=== PATIENT | female | born 1985 | race African-American/Black ===

== ENCOUNTER 2016-08-18 10:25 | Inpatient (IN) | payer OTHER ==
--- NOTE | ~2016-08-18 | EKG ---
PATIENT: KURTIS SHANKAR UNIT #: [id number] Ventricular Rate: 97 BPM Atrial Rate: 97 BPM P-R Interval: 146 ms QRS Duration: 78 ms Q-T Interval: 332 ms QTC Calculation(Bezet): 421 ms P Mcdowell: 50 degrees Calculated R Mcdowell: 34 degrees Calculated T Mcdowell: 24 degrees Diagnosis Line: Normal sinus rhythm Diagnosis Line: Normal ECG Diagnosis Line: When compared with ECG of 18-AUG-2016 09:12, Diagnosis Line: (unconfirmed) Diagnosis Line: Sinus rhythm has replaced Atrial fibrillation Diagnosis Line: Vent. rate has decreased BY 48 BPM Diagnosis Line: Confirmed by TOD TONG MD ([id number]) on 08/20/2016 Diagnosis Line: 9:48:01 AM INTERPRETING MD: RAN SUAREZ
--- NOTE | ~2016-08-18 | DS ---
Unit #: [id number] #: [id number] Patient: KURTIS SHANKAR [id number] [address] [place], [place] [address] [id number] I MR#: [id number] NAME: KURTIS SHANKAR ROOM: 63083 Age: 31 Sex: F Admission Date: 08/18/2016 : 1985 Discharge Date: 08/18/2016 Attending Physician: Tere Richardson M.D. Primary Care Physician: No Primary Care Physician DISCHARGE SUMMARY DISCHARGE DIAGNOSES 1. Paroxysmal atrial fibrillation. 2. Gastroesophageal reflux disease. 3. Obesity with possible obstructive sleep apnea. DISCHARGE MEDICATIONS 1. Metoprolol 25 mg p.o. once daily. 2. Pantoprazole 40 mg p.o. twice daily. PERTINENT LABS Creatinine stable. TSH 0.68 (normal). Drug abuse, positive for marijuana. HOSPITAL COURSE A 31-year-old -Turkmen female who came to ER with abdominal cramp and pain, nausea, vomiting and diarrhea. The patient was also found to be in paroxysmal atrial fibrillation with a ventricular rate of 145 beats a minute. The patient received fluids and also received Cardizem IV. She spontaneously converted to normal sinus rhythm. Her orthostatics, however, have been negative and her abdominal cramps have much resolved. She still continues to have acid reflux type symptoms. Orthostatic blood pressure initially was around 138/86. She denied any history of hypertension. She denied any history of sudden cardiac in family. The first set of cardiac enzymes were negative. Her rhythm since converted to normal sinus rhythm, is stable. Most likely, the patient's etiology for paroxysmal atrial fibrillation was acute gastrointestinal illness and electrolyte imbalance, currently in normal sinus rhythm. The patient denied any such episodes in the past. With only one such episode, I would not offer her anticoagulation, also, with [id number] score zero. I discussed in length with the patient that she needs cardiology followup. She is agreeable to that and wants to go home, completely stable for discharge. As an outpatient, the patient would require a 2-D echocardiogram and obstructive sleep apnea study. Also, the patient would require event monitor if she has any symptoms of palpitations to see recurrence of atrial fibrillation to assess for the need of anticoagulation. The patient is stable to be discharged with outpatient followup with Cardiology in two to three weeks. Dictated by..Madelaine Richardson M.D. Unit #: [id number] #: [id number] Patient: KURTIS SHANKAR TIP/gladis TD: 08/19/2016 06:03 JOB #: [id number] DISCHARGE SUMMARY Page 1 of 1 X TERE RICHARDSON MD X DISCHARGE SUMMARY
--- NOTE | ~2016-08-18 | HP ---
Unit #: [id number] #: [id number] Patient: KURTIS SHANKAR [id number] [address] [address] [id number] I MR#: [id number] NAME: KURTIS SHANKAR ROOM: 91024 Age: 31 Sex: F Admission Date: 08/18/2016 : 1985 Attending Physician: Devan Richardson M.D. Primary Care Physician: No Primary Care Physician HISTORY AND PHYSICAL CHIEF COMPLAINT Dizziness, fatigue, palpitations. HISTORY OF PRESENT ILLNESS The patient is a 31-year-old female who does not have a primary care provider or a purler. She denies any significant past medical history. She endorses that she has 4 children. She occasionally smokes marijuana. The patient reports that on Thursday, after she ate some ribs, she began vomiting and having palpitations. She felt dizzy and short of breath at that time. Ever since Thursday, she again has reported that off and on she has occasionally felt palpitations, hot flashes, dizziness and fatigue. She also does endorse stomach and back pains. She denies any chest pain. She does endorse that she does have a burning sensation in her epigastric area. In the emergency department patient was treated with Zofran and Pepcid. She was given a liter of normal saline, and she was given 20 mg of IV Cardizem as a bolus. Her EKG showed atrial fibrillation with a rapid ventricular rate. Her rate at that time was 144. Chest x-ray shows thoracic scoliosis but no active disease. Patient has been admitted for further workup. PAST MEDICAL HISTORY Denies. PAST SURGICAL HISTORY None. ALLERGIES No known allergies. HOME MEDICATIONS None. FAMILY HISTORY The patient denies any history of coronary artery disease in her parents or siblings. SOCIAL HISTORY Patient endorses that she has 4 children. She endorses she had these kids naturally without an epidural. She denies tobacco and alcohol use. She states that she will occasionally smoke marijuana. 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 to 6 p.m. She does endorse that one of the children was recently sick with a viral infection. REVIEW OF SYSTEMS A 10-point review of systems has been done and is considered, otherwise, negative unless indicated in the HPI. PHYSICAL EXAMINATION GENERAL: Patient is awake, alert, in no acute distress. CURRENT VITAL SIGNS: Temperature 97.9, heart rate 106, respirations 18, blood pressure 118/87. She is oxygenating 100% on room air. HEENT: Head is atraumatic, normocephalic. Pupils equal, round and reactive. Extraocular movements are intact. No discharge from ears or nares. NECK: Supple. Trachea is midline. CHEST: Lungs are clear to auscultation bilaterally. No wheezes, rales or rhonchi. CARDIOVASCULAR: Irregularly irregular. No gallops are appreciated. Patient has a 1 to 2/6 systolic murmur. SKIN: Skin appears to be warm, dry and intact without any unusual rashes or lesions. EXTREMITIES: No clubbing, edema or cyanosis. NEUROLOGIC: The patient is alert and oriented x4. She is pleasant and conversant. No focal deficits. DIAGNOSTIC STUDIES RADIOLOGY: Chest x-ray shows thoracic scoliosis. No active disease. LABORATORY RESULTS: White blood cells 5.4, hemoglobin 14.5, hematocrit 45.6, platelets 285. Sodium 139, potassium 3.8, chloride 108, CO2 22, BUN 12, creatinine 0.7, glucose 109. TSH 0.64. ASSESSMENT 1. Atrial fibrillation, onset and duration unknown. 2. Hypertension. 3. Possible GERD. 4. Abdominal cramps. 5. Marijuana use occasionally. PLAN At this time will check the patient for . Will trend cardiac enzymes, check an echo and EKG in the morning. Will start the patient on a PPI and will start the patient on Metoprolol 25 mg p.o. b.i.d. and hold for heart rate less than 160 or systolic blood pressure less than 100. Will also do a urine drug screen and check orthostatics on the patient. The patient's TSH is 0.64. May need to consider a GI evaluation. Dr. Richardson is to see this patient to determine anticoagulation for this patient, whether or not it is Lovenox and Coumadin versus (1) . Again, will wait for the blood test to result. Dictated by Lakesha Carcamo A.P.R.N. for Devan Richardson M.D. AM/db TD: 08/18/2016 15:37 Unit #: [id number] #: [id number] Patient: KURTIS SHANKAR JOB #: [id number] HISTORY AND PHYSICAL Page 1 of 1 X Lakesha Carcamo APRN X HISTORY AND PHYSICAL
--- NOTE | ~2016-08-18 | EKG ---
PATIENT: KURTIS SHANKAR UNIT #: [id number] Ventricular Rate: 145 BPM Atrial Rate: 66 BPM QRS Duration: 78 ms Q-T Interval: 288 ms QTC Calculation(Bezet): 447 ms Calculated R Clinton: 38 degrees Calculated T Clinton: 33 degrees Diagnosis Line: Atrial fibrillation with rapid ventricular Diagnosis Line: response Diagnosis Line: Abnormal ECG Diagnosis Line: No previous ECGs available Diagnosis Line: Confirmed by TOD TONG MD ([id number]) on 08/20/2016 Diagnosis Line: 9:45:01 AM INTERPRETING MD: RAN SUAREZ
--- NOTE | ~2016-08-18 | HP ---
Unit #: [id number] #: [id number] Patient: KURTIS SHANKAR [id number] [address] [address] [id number] I MR#: [id number] NAME: KURTIS SHANKAR ROOM: 19623 Age: 31 Sex: F Admission Date: 08/18/2016 : 1985 Attending Physician: Devan Richardson M.D. HISTORY AND PHYSICAL ADDENDUM Patient's CHADS-VASc score is 1-2. Dictated by Lakesha Carcamo A.P.R.N. for Devan Richardson M.D. AM/am TD: 08/18/2016 20:46 JOB #: [id number] HISTORY AND PHYSICAL Page 1 of 1 X Lakesha Carcamo APRN X HISTORY AND PHYSICAL
--- NOTE | ~2016-08-18 | CR72 ---
[facility] A Service of [facility] RADIOLOGY TEXT RESULTS PATIENT: KURTIS SHANKAR LOCATION: [facility] [id number] : [birth year] UNIT #: [id number] AGE: [address]: TERE RUIZ MD SEX: F ORDER DR: [id number] [facility] [address] [place], [place] [address] [id number] MR#: [id number] Acc #: [id number] NAME: KURTIS SHANKAR : 1985 SEX: F STUDY DATE/TIME: 08/18/2016 9:35 UNIT: [facility] ROOM: STUDY DESCRIPTION: CR Chest Single View Portable Attending Physician: Donte David M.D. Ordering Physician: Ed Doctor [id number] [facility] Primary Care Physician: Primary Care Physician No MEDICAL IMAGING REPORT This report is preliminary unless electronic signature is present EXAM Portable chest 08/18/2016 INDICATION Fatigue. Abdominal pain for 1 day. Former smoker. FINDINGS AP portable chest was obtained. No comparison. Cardiac and mediastinal contours are normal. The lungs are clear. There is no pneumothorax. There is dextroscoliosis in the thoracic spine. IMPRESSION Thoracic scoliosis. No active disease. Dictated by... Deshaun Camargo Jr., M.D. THIS IS AN ELECTRONICALLY VERIFIED REPORT Deshaun Camargo Jr., M.D. at 08/18/2016 5:04 PM DAJA/la TD: 08/18/2016 11:21 JOB #: [id number] MEDICAL IMAGING REPORT Page 1 of 1 COPY
[2016-08-18 09:37] LABS: POC - CKMB <1.0 ng/mL (0.0-7.9); POC - TROPONIN <0.05 ng/mL (<=0.05)
[2016-08-18 09:38] LABS: BASOPHIL% 0.5 % (0-2.5); EOSINOPHIL# 0.1 X10e3 (0-0.7); EOSINOPHIL% 1.8 % (0.0-7.0); HEMATOCRIT 45.6 % (35.0-45.0); HEMOGLOBIN 14.5 gm/dL (12.0-16.0); LYMPHOCYTE# 1.5 X10e3 (1.0-3.5); LYMPHOCYTE% 27.3 % (17.0-45.0); MEAN CORPUSCULAR HEMOGLOBIN 26.4 PG (28-34); MEAN CORPUSCULAR HGB CONC 31.9 g/dL (30-36); MEAN PLATELET VOLUME 8.6 FL (6.5-11.5); MONOCYTE# 0.9 X10e3 (0-1.0); MONOCYTE% 16.8 % (3.0-12.0); NEUTROPHIL# 2.9 X10e3 (1.5-7.1); NEUTROPHIL% 53.6 % (40-75); PLATELET COUNT 285 X10e3 (140-420); RED CELL DISTRIBUTION WIDTH 14.9 % (11.0-15.5); WHITE BLOOD COUNT 5.4 X10e3 (4.0-10.5)
[2016-08-18 09:41] LABS: DIFF IND NO
[2016-08-18 10:09] LABS: URINE SOURCE CLEAN CATCH
[2016-08-18 10:10] LABS: ALBUMIN SERUM 4.1 g/dL (3.5-5.0); BILIRUBIN,TOTAL 0.2 mg/dL (0.2-2.0); BUN/CREATININE RATIO 17.14; CALCIUM SERUM 9.2 mg/dL (8.4-10.2); CREATININE SERUM 0.7 mg/dL (0.6-1.4); GLOM FILT RATE Estimated 132.9 mL/min (>60); POTASSIUM 3.8 mmol/L (3.5-5.1); PROTEIN TOTAL SERUM 8.1 g/dL (6.0-8.3)
[2016-08-18 10:21] LABS: URINE APPEARANCE CLEAR; URINE BILIRUBIN NEG (NEG); URINE BLOOD NEG (NEG); URINE COLOR YELLOW; URINE GLUCOSE NEG (NEG); URINE KETONE NEG (NEG); URINE LEUKOCYTE ESTERASE NEG (NEG); URINE NITRATE NEG (NEG); URINE PROTEIN NEG (NEG); URINE SPECIFIC GRAVITY 1.003 (1.003-1.035); URINE UROBILINOGEN 0.2 MG/DL (NEG)
[~2016-08-18 10:25] MED LIST: BACTRIM 400-801 TA1 PO; PEN-VEE K PO; PRENATAL1 TA1; ULTRAM PO
[2016-08-18 10:27] LABS: CULTURE INDICATED? NO
[2016-08-18 13:18] LABS: CHOLESTEROL 153 mg/dL (0-200); HDL CHOLESTEROL 45 mg/dL (35-95); LDL CHOLESTEROL 93 mg/dL (-130); LDL/HDL RATIO 2 RATIO (0-4); TRIGLYCERIDES 75 mg/dL (10-160)
[2016-08-18 13:55] LABS: AMPHETAMINE NEG (NEG); BARBITURATES NEG (NEG); BENZODIAZEPINES NEG (NEG); COCAINE NEG (NEG); MARIJUANA POS (NEG); OPIATES NEG (NEG); TRICYCLIC ANTIDEPRESSANTS NEG (NEG); U METHADONE NEG (NEG)
[2016-08-18 16:07] LABS: %MB 1.3 % (0.0-4.0); MB 0.9 ng/ml
== END 2016-08-18 19:20 | disposition home or self-care (01) | DRG 392 ==
LOC: CED 10:25 → CEDOF 12:23
PROVIDERS: Internal Medicine Interventional Cardiology; Nurse Practitioner
PROC: B246ZZZ Ultrasonography of Right and Left Heart (ICD-10-PCS; principal; 2016-08-18)
DX: K21.9 Gastro-esophageal reflux disease without esophagitis (principal); I48.0 Paroxysmal atrial fibrillation; E87.8 Other disorders of electrolyte and fluid balance, not elsewhere classified; G47.33 Obstructive sleep apnea (adult) (pediatric); E66.9 Obesity, unspecified; F12.10 Cannabis abuse, uncomplicated; Z68.33 Body mass index [BMI] 33.0-33.9, adult
CPT/HCPCS: 36415; 71010; 80053; 80061; 80307; 81003; 82550; 82553; 83735; 84443; 84484; 84703; 85025; 93005; 93306; 96361; 96374; 96375; 99285; J0153; J2405